=== PATIENT | female | born 1935 | race Caucasian/White ===

== ENCOUNTER 2021-08-31 10:05 | Inpatient (IN) | payer OTHER, MEDICARE ==
[2021-08-31] MEDS ORDERED: ACETAMINOPHEN 1000 MG/100 ML BAG IVPB ONE (11:42)
[2021-08-31] MEDS ORDERED: SODIUM CHLORIDE 0.9% 500 ML INFUS.BAG IV ONE (11:42)
[2021-08-31] MEDS ORDERED: ACETAMINOPHEN INJECTION 100 ML IVPB ONE (12:05)
[2021-08-31 12:18] LABS: BASO % 0.5 % (0-2.0); EOS % 2.4 % (0-4.5); HEMOGLOBIN 13.1 GM/dL (10.7-15.3); MCH 28.3 pg (25.7-33.7); MCHC 31.9 g/dl (32.0-36.0); MEAN CELL VOLUME 88.9 fl (80-96); MEAN PLT VOLUME 8.7 fl (7.5-11.1); NEUT % 68.1 % (42.8-82.8); PLATELET COUNT 150 10^3/uL (134-434); RBC 4.61 M/mm3 (3.60-5.2); RDW 15.4 % (11.6-15.6); WHITE BLOOD COUNT 4.1 K/mm3 (4.0-10.0)
[2021-08-31 12:24] LABS: PROTHROMBIN TIME (PATIENT) 11.5 SEC (9.7-13.0)
[2021-08-31 12:26] LABS: ACTIVATED PTT 26.4 SECONDS (25.2-36.5)
[2021-08-31 12:44] LABS: CHLORIDE 107 mmol/L (98-107); SODIUM 140 mmol/L (136-145)
[2021-08-31 12:46] LABS: CALCIUM 9.2 mg/dL (8.5-10.1)
[2021-08-31 12:47] LABS: ALBUMIN 3.2 g/dl (3.4-5.0); ANION GAP 3 MMOL/L (8-16); BLOOD UREA NITROGEN 11.4 mg/dL (7-18); CO2 30 mmol/L (21-32); GLUCOSE,RANDOM 120 mg/dL (74-106)
[2021-08-31 12:49] LABS: BILIRUBIN,DIRECT 0.1 mg/dL (0.0-0.2)
[2021-08-31 12:50] LABS: CREATININE 0.8 mg/dL (0.55-1.3); SGOT/AST 35 U/L (15-37); SGPT/ALT 13 U/L (13-61)
[2021-08-31 12:51] LABS: BILIRUBIN,TOTAL 0.5 mg/dL (0.2-1); TOT PROT 6.9 g/dl (6.4-8.2)
[2021-08-31 12:53] LABS: ALK PHOS 74 U/L (45-117)
[2021-08-31 14:29] LABS: URINE APPEARANCE CLEAR; URINE BILIRUBIN NEGATIVE (NEGATIVE); URINE COLOR YELLOW; URINE GLUCOSE (UA) NEGATIVE (NEGATIVE); URINE KETONE NEGATIVE (NEGATIVE); URINE LEUK ESTERASE NEGATIVE (NEGATIVE); URINE NITRITE NEGATIVE (NEGATIVE); URINE PROTEIN NEGATIVE (NEGATIVE); URINE UROBILINOGEN 0.2 mg/dL (0.2-1.0)
[2021-08-31 14:42] LABS: LDH 464 U/L (84-246)
[2021-08-31] MEDS ORDERED: DEXTROSE 5%-0.45% SALINE 1,000 ML IV SCH (16:30)
[2021-08-31] MEDS ORDERED: guaiFENesin 200 MG/10 ML 10 ML UNIT-DOSE CUPS PO PRN (19:51)
[2021-08-31] MEDS: MIRTAZAPINE 15 MG TABLET (FP) PO SCH (21:24)
[2021-09-01 00:16] VITALS: BMI 24.9
[2021-09-01] MEDS: MULTIVIT-MINERALS ORAL LIQUID PO SCH (10:44)
[2021-09-01] MEDS: ENOXAPARIN NA (PORCINE) 40 MG/0.4 ML DISP.SYRIN SQ SCH (10:44)
[2021-09-01] MEDS: GABAPENTIN 300 MG CAPSULE PO SCH (21:50)
[2021-09-01] MEDS: MIRTAZAPINE 15 MG TABLET (FP) PO SCH (21:50)
[2021-09-01] MEDS: ATORVASTATIN CA 10 MG TABLET (FP) PO SCH (21:51)
[2021-09-02] MEDS: GABAPENTIN 300 MG CAPSULE PO SCH (10:12)
[2021-09-02] MEDS: ENOXAPARIN NA (PORCINE) 40 MG/0.4 ML DISP.SYRIN SQ SCH (10:13)
[2021-09-02] MEDS: ARIPiprazole 2 MG TABLET PO SCH (10:13)
[2021-09-02] MEDS: MULTIVIT-MINERALS ORAL LIQUID PO SCH (10:13)
[2021-09-02] MEDS: BUDESONIDE/FORMETEROL FUMARATE 160/4.5 mcg INHALER IH SCH ×2 (15:08→21:43)
[2021-09-02] MEDS: ATORVASTATIN CA 10 MG TABLET (FP) PO SCH (21:42)
[2021-09-02] MEDS: GABAPENTIN 100 MG CAPSULE PO SCH (21:42)
[2021-09-02] MEDS: MIRTAZAPINE 15 MG TABLET (FP) PO SCH (21:42)
[2021-09-03] MEDS: ACETAMINOPHEN 325 MG TABLET (FP) PO PRN (11:06)
[2021-09-03] MEDS: MULTIVIT-MINERALS ORAL LIQUID PO SCH (11:07)
[2021-09-03] MEDS: GABAPENTIN 100 MG CAPSULE PO SCH ×2 (11:07→21:53)
[2021-09-03] MEDS: ENOXAPARIN NA (PORCINE) 40 MG/0.4 ML DISP.SYRIN SQ SCH (11:07)
[2021-09-03] MEDS: ARIPiprazole 2 MG TABLET PO SCH (11:08)
[2021-09-03] MEDS: BUDESONIDE/FORMETEROL FUMARATE 160/4.5 mcg INHALER IH SCH ×2 (11:08→21:59)
[2021-09-03] MEDS: MIRTAZAPINE 15 MG TABLET (FP) PO SCH (21:53)
[2021-09-03] MEDS: ATORVASTATIN CA 10 MG TABLET (FP) PO SCH (21:53)
[2021-09-04] MEDS: GABAPENTIN 100 MG CAPSULE PO SCH ×2 (10:48→21:30)
[2021-09-04] MEDS: ARIPiprazole 2 MG TABLET PO SCH (10:48)
[2021-09-04] MEDS: MULTIVIT-MINERALS ORAL LIQUID PO SCH (10:48)
[2021-09-04] MEDS: ACETAMINOPHEN 325 MG TABLET (FP) PO PRN (10:48)
[2021-09-04] MEDS: ENOXAPARIN NA (PORCINE) 40 MG/0.4 ML DISP.SYRIN SQ SCH (10:48)
[2021-09-04] MEDS: BUDESONIDE/FORMETEROL FUMARATE 160/4.5 mcg INHALER IH SCH ×2 (10:51→21:30)
[2021-09-04] MEDS: MIRTAZAPINE 15 MG TABLET (FP) PO SCH (21:30)
[2021-09-04] MEDS: ATORVASTATIN CA 10 MG TABLET (FP) PO SCH (21:30)
[2021-09-05] MEDS: GABAPENTIN 100 MG CAPSULE PO SCH (09:20)
[2021-09-05] MEDS: MULTIVIT-MINERALS ORAL LIQUID PO SCH (09:20)
[2021-09-05] MEDS: ARIPiprazole 2 MG TABLET PO SCH (09:20)
[2021-09-05] MEDS: ENOXAPARIN NA (PORCINE) 40 MG/0.4 ML DISP.SYRIN SQ SCH (09:20)
[2021-09-05] MEDS: BUDESONIDE/FORMETEROL FUMARATE 160/4.5 mcg INHALER IH SCH (09:21)
[2021-09-05 12:05] VITALS: BP 148/61; PULSE 85; TEMP 97.4
== END 2021-09-05 15:57 | DRG 865 ==
LOC: JER 10:05 → JERBED 11:02 → J7W 19:08 → J6S 09-01 01:10
PROVIDERS: ADMIT Internal Medicine; ATTEND Internal Medicine
DX: B97.4 Respiratory syncytial virus as the cause of diseases classified elsewhere (principal); G93.41 Metabolic encephalopathy; R09.02 Hypoxemia; G20 Parkinson's disease
CPT/HCPCS: 36415; 70450-TC; 71045-TC-FY; 80053; 81003; 82248; 82550; 82728; 82962; 83605; 83615; 84484; 85025; 85610; 85730; 86140; 87040; 87086; 87804; 87807; 93005; 93010; 97116-GP; 97162-GP; 99285-25; C9803; J0131; U0003; U0005

== ENCOUNTER 2021-11-18 09:20 | Inpatient (IN) | payer OTHER, MEDICARE ==
[2021-11-18 09:26] VITALS: BMI 27.2
[2021-11-18] MEDS ORDERED: ACETAMINOPHEN 1000 MG/100 ML BAG IVPB ONE (10:31)
[2021-11-18] MEDS ORDERED: ACETAMINOPHEN INJECTION 100 ML IVPB ONE (10:58)
[2021-11-18 11:02] LABS: BASO % 0.9 % (0-2.0); EOS % 2.6 % (0-4.5); HEMATOCRIT 37.3 % (32.4-45.2); LYMPH % 25.6 % (8-40); MCH 27.6 pg (25.7-33.7); MCHC 32.2 g/dl (32.0-36.0); MEAN CELL VOLUME 85.7 fl (80-96); MEAN PLT VOLUME 8.4 fl (7.5-11.1); MONO % 9.1 % (3.8-10.2); NEUT % 61.8 % (42.8-82.8); PLATELET COUNT 183 10^3/uL (134-434); RBC 4.35 M/mm3 (3.60-5.2); RDW 16.5 % (11.6-15.6); WHITE BLOOD COUNT 5.3 K/mm3 (4.0-10.0)
[2021-11-18 11:10] LABS: INR 0.98 (0.83-1.09); PROTHROMBIN TIME (PATIENT) 11.3 SEC (9.7-13.0)
[2021-11-18 11:12] LABS: ACTIVATED PTT 27.7 SECONDS (25.2-36.5)
[2021-11-18 11:23] LABS: CALCIUM 8.7 mg/dL (8.5-10.1)
[2021-11-18] MEDS ORDERED: HEPARIN NA (PORCINE) 5,000 UNITS/ML 1ML VIAL IVPUSH ONE (11:24)
[2021-11-18 11:25] LABS: ALBUMIN 2.9 g/dl (3.4-5.0); BLOOD UREA NITROGEN 19.2 mg/dL (7-18)
[2021-11-18] MEDS ORDERED: HEPARIN NA (PORCINE) 5,000 UNITS/ML 1ML VIAL IVPUSH PRN ×2 (11:25)
[2021-11-18 11:27] LABS: CREATININE 1.2 mg/dL (0.55-1.3)
[2021-11-18 11:29] LABS: BILIRUBIN,TOTAL 0.3 mg/dL (0.2-1); TOT PROT 6.4 g/dl (6.4-8.2)
[2021-11-18] MEDS ORDERED: HEPARIN - 25,000 UNIT in SODIUM CHLORIDE 495 ML IV SCH (11:30)
[2021-11-18 11:33] LABS: N-TERMINAL BNP 410.6 pg/ml (5-450)
[2021-11-18] MEDS ORDERED: HEPARIN NA (PORCINE) 5,000 UNITS/ML 1ML VIAL ONE (11:40)
[2021-11-18] MEDS ORDERED: HEPARIN INFUSION - 25,000 UNITS/500 ML INFUS.BAG IVPB SCH (11:45)
[2021-11-18] MEDS ORDERED: VANCOMYCIN 1 GM in D5W (PRE-DOCKED) 1,000 MG/250 ML IVPB ONE (14:46)
[2021-11-18] MEDS ORDERED: VANCOMYCIN 1 GRAM (PRE-DOCKED) 1,000 MG/250 ML BAG IVPB ONE (14:58)
[2021-11-18] MEDS ORDERED: ACETAMINOPHEN 325 MG TABLET (FP) PO PRN (16:35)
[2021-11-18] MEDS ORDERED: AMPICILLIN NA/SULBACTAM NA 1.5 GM VIAL ONE ×2 (17:37→21:27)
[2021-11-18] MEDS ORDERED: SODIUM CHLORIDE 100 ML IVPB ONE ×2 (17:37→21:27)
[2021-11-18] MEDS: AMPICILLIN NA/SULBACTAM NA 1.5 GM in SODIUM CHLORIDE 100 ML IVPB SCH ×2 (19:06→21:39)
[2021-11-18] MEDS ORDERED: PNEUMOC 13-VAL CONJ-DIP CRM/PF 0.5 ML DISP.SYRIN IM ONE (20:00)
[2021-11-18] MEDS: ATORVASTATIN CA 10 MG TABLET (FP) PO SCH (21:36)
[2021-11-18] MEDS: GABAPENTIN 300 MG CAPSULE PO SCH (21:36)
[2021-11-18] MEDS: MIRTAZAPINE 15 MG TABLET (FP) PO SCH (21:36)
[2021-11-18] MEDS: HEPARIN NA (PORCINE) 5,000 UNITS/ML 1ML VIAL SQ SCH (21:36)
[2021-11-18] MEDS: ALPRAZolam 0.25 MG TABLET PO SCH (21:36)
[2021-11-18] MEDS: BUDESONIDE/FORMETEROL FUMARATE 160/4.5 mcg INHALER IH SCH ×2 (21:39→21:55)
[2021-11-19] MEDS ORDERED: AMPICILLIN NA/SULBACTAM NA 1.5 GM VIAL ONE ×4 (01:11→22:16)
[2021-11-19] MEDS ORDERED: SODIUM CHLORIDE 100 ML IVPB ONE ×4 (01:11→22:16)
[2021-11-19] MEDS: AMPICILLIN NA/SULBACTAM NA 1.5 GM in SODIUM CHLORIDE 100 ML IVPB SCH ×4 (02:04→22:27)
[2021-11-19] MEDS: ALPRAZolam 0.25 MG TABLET PO SCH ×2 (09:12→22:27)
[2021-11-19] MEDS: POLYETHYLENE GLYCOL (HEALTHYLAX) 3350 17 GM PACKET PO SCH (09:13)
[2021-11-19] MEDS: GABAPENTIN 300 MG CAPSULE PO SCH ×2 (09:13→22:27)
[2021-11-19] MEDS: HEPARIN NA (PORCINE) 5,000 UNITS/ML 1ML VIAL SQ SCH ×2 (09:13→22:27)
[2021-11-19] MEDS: BUDESONIDE/FORMETEROL FUMARATE 160/4.5 mcg INHALER IH SCH ×2 (09:13→22:27)
[2021-11-19] MEDS: FUROSEMIDE 20 MG TABLET (FP) PO SCH (10:23)
[2021-11-19] MEDS: ARIPiprazole 2 MG TABLET PO SCH (10:23)
[2021-11-19] MEDS: ATORVASTATIN CA 10 MG TABLET (FP) PO SCH (22:27)
[2021-11-19] MEDS: MIRTAZAPINE 15 MG TABLET (FP) PO SCH (22:27)
[2021-11-20] MEDS ORDERED: AMPICILLIN NA/SULBACTAM NA 1.5 GM VIAL ONE ×2 (01:55→09:51)
[2021-11-20] MEDS ORDERED: SODIUM CHLORIDE 100 ML IVPB ONE ×2 (01:55→09:51)
[2021-11-20] MEDS: AMPICILLIN NA/SULBACTAM NA 1.5 GM in SODIUM CHLORIDE 100 ML IVPB SCH ×2 (02:02→09:58)
[2021-11-20] MEDS: POLYETHYLENE GLYCOL (HEALTHYLAX) 3350 17 GM PACKET PO SCH (09:58)
[2021-11-20] MEDS: GABAPENTIN 300 MG CAPSULE PO SCH ×2 (09:59→21:13)
[2021-11-20] MEDS: HEPARIN NA (PORCINE) 5,000 UNITS/ML 1ML VIAL SQ SCH ×2 (09:59→21:12)
[2021-11-20] MEDS: ARIPiprazole 2 MG TABLET PO SCH (10:02)
[2021-11-20] MEDS: FUROSEMIDE 20 MG TABLET (FP) PO SCH (10:02)
[2021-11-20] MEDS: BUDESONIDE/FORMETEROL FUMARATE 160/4.5 mcg INHALER IH SCH ×2 (10:02→21:13)
[2021-11-20] MEDS: ALPRAZolam 0.25 MG TABLET PO SCH ×2 (10:02→21:13)
[2021-11-20 10:28] LABS: BASO % 0.6 % (0-2.0); EOS % 3.1 % (0-4.5); HEMATOCRIT 38.7 % (32.4-45.2); HEMOGLOBIN 12.4 GM/dL (10.7-15.3); LYMPH % 18.9 % (8-40); MCH 27.6 pg (25.7-33.7); MCHC 32.1 g/dl (32.0-36.0); MEAN PLT VOLUME 9.1 fl (7.5-11.1); MONO % 7.1 % (3.8-10.2); NEUT % 70.3 % (42.8-82.8); PLATELET COUNT 177 10^3/uL (134-434); RBC 4.49 M/mm3 (3.60-5.2); RDW 16.4 % (11.6-15.6); WHITE BLOOD COUNT 5.7 K/mm3 (4.0-10.0)
[2021-11-20 10:56] LABS: BLOOD UREA NITROGEN 13.6 mg/dL (7-18); CALCIUM 8.7 mg/dL (8.5-10.1)
[2021-11-20 10:59] LABS: CREATININE 0.9 mg/dL (0.55-1.3)
[2021-11-20 11:01] LABS: BILIRUBIN,TOTAL 0.3 mg/dL (0.2-1); TOT PROT 6.6 g/dl (6.4-8.2)
[2021-11-20] MEDS: ATORVASTATIN CA 10 MG TABLET (FP) PO SCH (21:12)
[2021-11-20] MEDS: MIRTAZAPINE 15 MG TABLET (FP) PO SCH (21:13)
[2021-11-21] MEDS ORDERED: DEXTROSE 5%-WATER - 50 ML IVPB ONE (08:55)
[2021-11-21] MEDS ORDERED: cefTRIAXone SODIUM 1 GM VIAL ONE (08:55)
[2021-11-21] MEDS: HEPARIN NA (PORCINE) 5,000 UNITS/ML 1ML VIAL SQ SCH (09:07)
[2021-11-21] MEDS: ARIPiprazole 2 MG TABLET PO SCH (09:07)
[2021-11-21] MEDS: FUROSEMIDE 20 MG TABLET (FP) PO SCH (09:07)
[2021-11-21] MEDS: GABAPENTIN 300 MG CAPSULE PO SCH (09:07)
[2021-11-21] MEDS: POLYETHYLENE GLYCOL (HEALTHYLAX) 3350 17 GM PACKET PO SCH (09:08)
[2021-11-21] MEDS: ALPRAZolam 0.25 MG TABLET PO SCH (09:08)
[2021-11-21] MEDS: BUDESONIDE/FORMETEROL FUMARATE 160/4.5 mcg INHALER IH SCH (09:08)
[2021-11-21] MEDS ORDERED: CEFTRIAXONE 1 GM in DEXTROSE 5%-WATER - 50 ML IVPB SCH (10:00)
[2021-11-21 14:01] VITALS: BP 126/67; TEMP 98.8
[2021-11-21 15:20] VITALS: PULSE 101
== END 2021-11-21 18:08 | disposition home or self-care (01) | DRG 603 ==
LOC: JER 09:20 → JERBED 14:47 → J5S 17:33 → OBSVTOIN 11-20 15:56
PROVIDERS: ADMIT Internal Medicine; ATTEND Internal Medicine
DX: L03.116 Cellulitis of left lower limb (principal); G20 Parkinson's disease; F02.80 Dementia in other diseases classified elsewhere, unspecified severity, without behavioral disturbance, psychotic disturbance, mood disturbance, and anxiety; E78.5 Hyperlipidemia, unspecified; F41.8 Other specified anxiety disorders; Z85.3 Personal history of malignant neoplasm of breast
CPT/HCPCS: 36415; 71045-TC-FY; 71275-TC; 73610-TC-RT-FY; 73630-TC-RT-FY; 80053; 83880; 84484; 85025; 85610; 85730; 87804; 90670; 93005; 93010; 93971-TC; 94761; 99285-25; C9803-CS; G0378; J1644; Q9967; U0003; U0005

== ENCOUNTER 2021-11-29 14:21 | Emergency (ER) | payer OTHER, MEDICARE ==
[2021-11-29 14:48] VITALS: TEMP 98.2; BMI 27.4
[2021-11-29 16:00] LABS: VENOUS PH 7.335 (7.310-7.410)
[2021-11-29 16:01] LABS: VENOUS BASE EXCESS -1.4 mmol/L (-2-2); VENOUS O2 SATURATION 70.4 % (70-80); VENOUS PCO2 47.7 mmHg (38-52)
[2021-11-29 16:02] LABS: BASO % 0.7 % (0-2.0); EOS % 3.4 % (0-4.5); LYMPH % 25.1 % (8-40); MCH 28.2 pg (25.7-33.7); MCHC 33.2 g/dl (32.0-36.0); MEAN CELL VOLUME 84.8 fl (80-96); MEAN PLT VOLUME 8.7 fl (7.5-11.1); MONO % 8.4 % (3.8-10.2); NEUT % 62.4 % (42.8-82.8); PLATELET COUNT 201 10^3/uL (134-434); RBC 4.25 M/mm3 (3.60-5.2); WHITE BLOOD COUNT 5.4 K/mm3 (4.0-10.0)
[2021-11-29 16:14] LABS: INR 0.94 (0.83-1.09); PROTHROMBIN TIME (PATIENT) 10.8 SEC (9.7-13.0)
[2021-11-29 16:17] LABS: ACTIVATED PTT 24.7 SECONDS (25.2-36.5)
[2021-11-29 16:28] LABS: ALBUMIN 3.3 g/dl (3.4-5.0)
[2021-11-29 16:32] LABS: CREATININE 0.7 mg/dL (0.55-1.3)
[2021-11-29 16:33] LABS: BILIRUBIN,TOTAL 0.2 mg/dL (0.2-1); TOT PROT 6.8 g/dl (6.4-8.2)
[2021-11-29 16:36] LABS: N-TERMINAL BNP 133.5 pg/ml (5-450)
[2021-11-29 19:33] VITALS: BP 133/87; PULSE 89
== END 2021-11-29 19:33 | disposition home or self-care (01) ==
LOC: JER 14:21
DX: R60.0 Localized edema (principal); M79.604 Pain in right leg
CPT/HCPCS: 36415; 71045-TC-FY; 80053; 82803; 83880; 85025; 85610; 85730; 86850; 86900; 86901; 93005; 93010; 93970-TC; 99285-25

== ENCOUNTER 2022-08-09 13:36 | Inpatient (IN) | payer OTHER, MEDICARE ==
[2022-08-09 14:40] VITALS: BMI 28.3
[2022-08-09] MEDS ORDERED: SODIUM CHLORIDE 0.9% 500 ML INFUS.BAG IV ONE (15:03)
[2022-08-09 16:28] LABS: BASO % 0.5 % (0-2.0); EOS % 2.3 % (0-4.5); HEMOGLOBIN 12.8 GM/dL (10.7-15.3); LYMPH % 19.5 % (8-40); MCH 28.4 pg (25.7-33.7); MEAN CELL VOLUME 88.7 fl (80-96); MEAN PLT VOLUME 8.7 fl (7.5-11.1); NEUT % 63.7 % (42.8-82.8); PLATELET COUNT 167 10^3/uL (134-434); RBC 4.51 M/mm3 (3.60-5.2); WHITE BLOOD COUNT 5.6 K/mm3 (4.0-10.0)
[2022-08-09 16:31] LABS: INR 0.96 (0.83-1.09)
[2022-08-09 16:33] LABS: ACTIVATED PTT 26.1 SECONDS (25.2-36.5)
[2022-08-09 16:53] LABS: ALBUMIN 3.3 g/dl (3.4-5.0); BLOOD UREA NITROGEN 18.6 mg/dL (7-18); CALCIUM 9.4 mg/dL (8.5-10.1)
[2022-08-09 16:58] LABS: BILIRUBIN,TOTAL 0.4 mg/dL (0.2-1)
[2022-08-09 17:09] LABS: CREATININE 0.9 mg/dL (0.55-1.3)
[2022-08-09 17:19] LABS: EPI CELLS 12 /uL (0-25.1); HYALINE CASTS 3 /uL (0-3.1); URINE APPEARANCE CLOUDY; URINE BACTERIA >9,000 /uL (0-1359); URINE BILIRUBIN NEGATIVE (NEGATIVE); URINE COLOR YELLOW; URINE GLUCOSE (UA) NEGATIVE (NEGATIVE); URINE KETONE NEGATIVE (NEGATIVE); URINE LEUK ESTERASE 2+ (NEGATIVE); URINE NITRITE NEGATIVE (NEGATIVE); URINE PROTEIN TRACE (NEGATIVE); URINE RBC 9 /uL (0-23.9); URINE UROBILINOGEN 0.2 mg/dL (0.2-1.0); URINE WBC 460 /uL (0-25.8)
[2022-08-09] MEDS ORDERED: CEFTRIAXONE 1 GM in DEXTROSE 5%-WATER - 100 ML IVPB ONE (17:25)
[2022-08-09] MEDS ORDERED: CEFTRIAXONE 1 GM/50 ML BAG ONE (17:34)
[2022-08-09] MEDS ORDERED: DOCUSATE SODIUM 100 MG CAPSULE (FP) PO PRN (21:05)
[2022-08-09] MEDS ORDERED: ACETAMINOPHEN 325 MG TABLET (FP) PO PRN (21:05)
[2022-08-09] MEDS ORDERED: LORazepam 2 MG/ML SDV VIAL IVPUSH ONE (21:17)
[2022-08-09] MEDS ORDERED: HEPARIN NA (PORCINE) 5,000 UNITS/ML 1ML VIAL SQ SCH (22:00)
[2022-08-10 08:57] LABS: BASO % 0.5 % (0-2.0); EOS % 0.7 % (0-4.5); HEMATOCRIT 40.4 % (32.4-45.2); HEMOGLOBIN 12.9 GM/dL (10.7-15.3); LYMPH % 19.2 % (8-40); MCH 28.2 pg (25.7-33.7); MEAN CELL VOLUME 88.2 fl (80-96); MEAN PLT VOLUME 8.7 fl (7.5-11.1); MONO % 12.7 % (3.8-10.2); NEUT % 66.9 % (42.8-82.8); PLATELET COUNT 166 10^3/uL (134-434); RBC 4.58 M/mm3 (3.60-5.2); RDW 14.9 % (11.6-15.6); WHITE BLOOD COUNT 6.2 K/mm3 (4.0-10.0)
[2022-08-10 09:25] LABS: BLOOD UREA NITROGEN 13.4 mg/dL (7-18)
[2022-08-10 09:28] LABS: MAGNESIUM 2.2 mg/dL (1.8-2.4); PHOSPHOROUS 3.4 mg/dL (2.5-4.9)
[2022-08-10 09:32] LABS: CREATININE 0.7 mg/dL (0.55-1.3)
[2022-08-10] MEDS: ENOXAPARIN NA (PORCINE) 40 MG/0.4 ML DISP.SYRIN SQ SCH (12:09)
[2022-08-10] MEDS: CEFTRIAXONE 1 GM in DEXTROSE 5%-WATER - 50 ML IVPB SCH (14:29)
[2022-08-10] MEDS: HALOPERIDOL LACTATE 5 MG/ML IM ONE ×2 (16:28→18:09)
[2022-08-11] MEDS ORDERED: LORazepam 2 MG/ML SDV VIAL IVPUSH ONE (08:57)
[2022-08-11] MEDS ORDERED: guaiFENesin 200 MG/10 ML 10 ML UNIT-DOSE CUPS PO PRN (08:59)
[2022-08-11] MEDS ORDERED: REMDESIVIR 200 MG in SODIUM CHLORIDE 250 ML IVPB ONE (10:00)
[2022-08-11] MEDS: CEFTRIAXONE 1 GM in DEXTROSE 5%-WATER - 50 ML IVPB SCH (11:48)
[2022-08-11] MEDS: DEXAMETHASONE SOD PHOSPHATE 10 MG/1 ML VIAL IVPUSH SCH (11:50)
[2022-08-11] MEDS: ARIPiprazole 2 MG TABLET PO SCH (11:54)
[2022-08-11] MEDS: BUDESONIDE/FORMETEROL FUMARATE 160/4.5 mcg INHALER IH SCH ×2 (11:54→22:37)
[2022-08-11] MEDS: ENOXAPARIN NA (PORCINE) 40 MG/0.4 ML DISP.SYRIN SQ SCH (11:54)
[2022-08-11] MEDS: GABAPENTIN 300 MG CAPSULE PO SCH ×2 (11:54→22:35)
[2022-08-11] MEDS: CALCIUM 500MG/VIT-D 200 UNITS COMBO TABLET (FP) PO SCH (17:11)
[2022-08-11] MEDS: MIRTAZAPINE 15 MG TABLET (FP) PO SCH (22:35)
[2022-08-11] MEDS: ALPRAZolam 0.25 MG TABLET PO PRN (22:35)
[2022-08-11] MEDS: ACETAMINOPHEN 325 MG TABLET (FP) PO PRN (22:36)
[2022-08-12] MEDS: CALCIUM 500MG/VIT-D 200 UNITS COMBO TABLET (FP) PO SCH (06:23)
[2022-08-12] MEDS: DEXAMETHASONE SOD PHOSPHATE 10 MG/1 ML VIAL IVPUSH SCH (07:47)
[2022-08-12] MEDS: REMDESIVIR 100 MG in SODIUM CHLORIDE 250 ML IVPB SCH (10:00)
[2022-08-12] MEDS: GABAPENTIN 300 MG CAPSULE PO SCH ×2 (10:31→21:34)
[2022-08-12] MEDS: ENOXAPARIN NA (PORCINE) 40 MG/0.4 ML DISP.SYRIN SQ SCH (10:31)
[2022-08-12] MEDS: ARIPiprazole 2 MG TABLET PO SCH (10:31)
[2022-08-12] MEDS: BUDESONIDE/FORMETEROL FUMARATE 160/4.5 mcg INHALER IH SCH ×2 (10:31→21:34)
[2022-08-12] MEDS: CEFTRIAXONE 1 GM in DEXTROSE 5%-WATER - 50 ML IVPB SCH (11:50)
[2022-08-12] MEDS: MIRTAZAPINE 15 MG TABLET (FP) PO SCH (21:34)
[2022-08-13] MEDS: DEXAMETHASONE SOD PHOSPHATE 10 MG/1 ML VIAL IVPUSH SCH (07:54)
[2022-08-13] MEDS: ARIPiprazole 2 MG TABLET PO SCH (09:40)
[2022-08-13] MEDS: ENOXAPARIN NA (PORCINE) 40 MG/0.4 ML DISP.SYRIN SQ SCH (09:40)
[2022-08-13] MEDS: CEFTRIAXONE 1 GM in DEXTROSE 5%-WATER - 50 ML IVPB SCH (09:40)
[2022-08-13] MEDS: GABAPENTIN 300 MG CAPSULE PO SCH ×2 (09:40→22:50)
[2022-08-13] MEDS: BUDESONIDE/FORMETEROL FUMARATE 160/4.5 mcg INHALER IH SCH ×2 (09:41→23:03)
[2022-08-13] MEDS: REMDESIVIR 100 MG in SODIUM CHLORIDE 250 ML IVPB SCH (10:14)
[2022-08-13] MEDS: MIRTAZAPINE 15 MG TABLET (FP) PO SCH (22:50)
[2022-08-13] MEDS: ALPRAZolam 0.25 MG TABLET PO PRN (22:50)
[2022-08-13] MEDS: ACETAMINOPHEN 325 MG TABLET (FP) PO PRN (23:00)
[2022-08-14] MEDS: CEFTRIAXONE 1 GM in DEXTROSE 5%-WATER - 50 ML IVPB SCH (10:31)
[2022-08-14] MEDS: DEXAMETHASONE SOD PHOSPHATE 10 MG/1 ML VIAL IVPUSH SCH (10:32)
[2022-08-14] MEDS: GABAPENTIN 300 MG CAPSULE PO SCH ×2 (10:32→22:27)
[2022-08-14] MEDS: ALPRAZolam 0.25 MG TABLET PO PRN (10:32)
[2022-08-14] MEDS: ENOXAPARIN NA (PORCINE) 40 MG/0.4 ML DISP.SYRIN SQ SCH (10:32)
[2022-08-14] MEDS: BUDESONIDE/FORMETEROL FUMARATE 160/4.5 mcg INHALER IH SCH ×2 (10:33→22:28)
[2022-08-14] MEDS: ARIPiprazole 2 MG TABLET PO SCH (10:33)
[2022-08-14] MEDS: REMDESIVIR 100 MG in SODIUM CHLORIDE 250 ML IVPB SCH (11:50)
[2022-08-14] MEDS ORDERED: ACETAMINOPHEN 325 MG TABLET (FP) PO PRN (17:04)
[2022-08-14] MEDS ORDERED: DOCUSATE SODIUM 100 MG CAPSULE (FP) PO PRN (17:04)
[2022-08-14] MEDS ORDERED: ALPRAZolam 0.25 MG TABLET PO PRN (17:04)
[2022-08-14] MEDS ORDERED: guaiFENesin 200 MG/10 ML 10 ML UNIT-DOSE CUPS PO PRN (17:04)
[2022-08-14] MEDS ORDERED: GABAPENTIN 300 MG CAPSULE PO SCH (22:00)
[2022-08-14] MEDS ORDERED: MIRTAZAPINE 15 MG TABLET (FP) PO SCH (22:00)
[2022-08-14] MEDS: MIRTAZAPINE 30 MG, MIRTAZAPINE 15 MG PO SCH (22:28)
[2022-08-15] MEDS: ENOXAPARIN NA (PORCINE) 40 MG/0.4 ML DISP.SYRIN SQ SCH (10:16)
[2022-08-15] MEDS: CEFTRIAXONE 1 GM in DEXTROSE 5%-WATER - 50 ML IVPB SCH (10:16)
[2022-08-15] MEDS: GABAPENTIN 300 MG CAPSULE PO SCH ×2 (10:18→23:34)
[2022-08-15] MEDS: ARIPiprazole 2 MG TABLET PO SCH (10:18)
[2022-08-15] MEDS: DEXAMETHASONE SOD PHOSPHATE 10 MG/1 ML VIAL IVPUSH SCH (10:18)
[2022-08-15] MEDS: BUDESONIDE/FORMETEROL FUMARATE 160/4.5 mcg INHALER IH SCH ×2 (10:22→23:35)
[2022-08-15] MEDS ORDERED: REMDESIVIR 100 MG in SODIUM CHLORIDE 250 ML IVPB SCH (11:00)
[2022-08-15 19:08] VITALS: RESP 18
[2022-08-15 21:21] VITALS: PULSE 51
[2022-08-15] MEDS: MIRTAZAPINE 30 MG, MIRTAZAPINE 15 MG PO SCH (23:34)
[2022-08-16 06:46] VITALS: BP 161/66; TEMP 98.2
[2022-08-16] MEDS: BUDESONIDE/FORMETEROL FUMARATE 160/4.5 mcg INHALER IH SCH (10:56)
[2022-08-16] MEDS: CEFTRIAXONE 1 GM in DEXTROSE 5%-WATER - 50 ML IVPB SCH (10:57)
[2022-08-16] MEDS: ENOXAPARIN NA (PORCINE) 40 MG/0.4 ML DISP.SYRIN SQ SCH (10:59)
[2022-08-16] MEDS: DEXAMETHASONE SOD PHOSPHATE 10 MG/1 ML VIAL IVPUSH SCH (10:59)
[2022-08-16] MEDS: GABAPENTIN 300 MG CAPSULE PO SCH (10:59)
[2022-08-16] MEDS: ARIPiprazole 2 MG TABLET PO SCH (11:00)
[2022-08-16] MEDS ORDERED: MIRTAZAPINE 30 MG, MIRTAZAPINE 15 MG PO SCH (22:00)
== END 2022-08-16 13:21 | disposition home or self-care (01) | DRG 177 ==
LOC: JER 13:36 → JERBED 18:28 → J4W 08-10 10:25 → J5S 08-14 16:03
PROVIDERS: ADMIT Internal Medicine; ATTEND Internal Medicine
PROC: XW033E5 Introduction of Remdesivir Anti-infective into Peripheral Vein, Percutaneous Approach, New Technology Group 5 (ICD-10-PCS; principal; 2022-08-09)
DX: U07.1 COVID-19 (principal); G92.8 Other toxic encephalopathy; J12.82 Pneumonia due to coronavirus disease 2019; N39.0 Urinary tract infection, site not specified; F03.90 Unspecified dementia, unspecified severity, without behavioral disturbance, psychotic disturbance, mood disturbance, and anxiety; G20 Parkinson's disease; B96.4 Proteus (mirabilis) (morganii) as the cause of diseases classified elsewhere
CPT/HCPCS: 0241U-QW; 36415; 70450-TC; 71045-TC-FY; 74177-TC; 80048; 80053; 81003; 82962; 83690; 83735; 84100; 84484; 85025; 85610; 85730; 87086; 87186; 93005; 93010; 97116-GP; 97162-GP; 99285-25; C9399; J1100; Q9967